=== PATIENT | female | born 1985 | race Caucasian/White ===

== ENCOUNTER 2023-04-29 07:29 | Outpatient (CLI) | payer BC, SELFPAY ==
--- NOTE | 2023-04-29 07:45 | CRLHL7_ITS ---
For Patients: As a result of the Century Cures Act, medical imaging exams and procedure reports are released immediately into your electronic medical record. You may view this report before your referring provider. If you have questions, please contact your health care provider. INDICATION: RLQ PAIN, IUD PLACEMENT COMPARISON: none TECHNIQUE: 2D lamar scale and color Doppler images were acquired of the pelvis using a transabdominal and transvaginal approach. Spectral Doppler evaluation of both ovaries also performed. FINDINGS: Sonographic images demonstrate a normal size and smooth outer contour of the uterus. Uterus measures 9.6 cm in length by 4.3 cm in AP diameter by 6.0 cm in transverse dimension. The myometrium has a normal uniform echotexture. The endometrial lining measures 4 mm in composite thickness. IUD is present in normal position within the endometrial canal. The right ovary measures 3.8 x 1.7 x 2.3 cm in size and the left ovary measures 3.3 x 1.4 x 2.4 cm. Collapsed right ovarian cyst is present measuring 1.7 x 1.1 x 1.8 cm. The ovaries demonstrate normal arterial and venous blood flow on color Doppler analysis. There are no suspicious fluid collections within the cul-de-sac. Normal spectral Doppler evaluation of both ovaries. IMPRESSION: Collapsed cyst within the right ovary measuring 1.8 cm. No excess pelvic free fluid. No ovarian torsion. Good position of the IUD within the endometrial canal. Dictated by Dannie Duarte MD @ 04/29/2023 8:24:23 AM (Electronically Signed)
== END 2023-04-29 07:30 | disposition home or self-care (01) ==
LOC: US 07:30
PROVIDERS: Visit Provider Registered Nurse
DX: R10.31 Right lower quadrant pain (principal); N83.201 Unspecified ovarian cyst, right side
CPT/HCPCS: 76830; 76856; 93976

== ENCOUNTER 2024-06-13 14:27 | Outpatient (CLI) | payer BC, SELFPAY ==
--- NOTE | 2024-06-13 14:40 | CRLHL7_ITS ---
For Patients: As a result of the Century Cures Act, medical imaging exams and procedure reports are released immediately into your electronic medical record. You may view this report before your referring provider. If you have questions, please contact your health care provider. BILATERAL SCREENING MAMMOGRAM WITH COMPUTER-AIDED DETECTION AND TOMOSYNTHESIS TECHNIQUE: CC and MLO views were obtained. These mammographic images have been obtained using full-field digital technique. These mammographic images were interpreted with the benefit of computer-aided detection. Breast Tomosynthesis was used in this interpretation. COMPARISON FILM: Baseline. FINDINGS: The breasts are heterogeneously dense, which may obscure small masses. IMPRESSION: There is no radiographic evidence for malignancy. ASSESSMENT: BI-RADS Category 1: Negative RECOMMENDATION: Routine screening mammogram in 1 year. A lay language report of this examination will be provided to the patient. Dannie Duarte M.D. Diagnostic Radiologist [email or web address] SP/Dictated by: Dannie Duarte MD @ 06/14/2024 9:59:00 AM (Electronically Signed)
== END 2024-06-13 14:28 | disposition home or self-care (01) ==
PROVIDERS: PCP Physician Assistant Medical; Visit Provider Physician Assistant Medical
DX: Z12.31 Encounter for screening mammogram for malignant neoplasm of breast (principal); R92.333 Mammographic heterogeneous density, bilateral breasts
CPT/HCPCS: 77063; 77067

== ENCOUNTER 2024-06-29 10:06 | Outpatient (CLI) | payer BC, SELFPAY ==
[2024-07-01 00:37] LABS: HPV Source Cervical/Vag; HPV, High Risk by TMA Not Detected
== END 2024-06-29 10:07 | disposition home or self-care (01) ==
PROVIDERS: PCP Physician Assistant Medical; Visit Provider Physician Assistant Medical
DX: Z00.00 Encounter for general adult medical examination without abnormal findings (principal); N87.1 Moderate cervical dysplasia; R53.83 Other fatigue; G89.29 Other chronic pain; Z13.6 Encounter for screening for cardiovascular disorders
CPT/HCPCS: 80053; 80061; 82728; 83540; 83550; 84443; 87624; 87625; 88141; 88142

== ENCOUNTER 2024-07-01 13:48 | Outpatient (RCR) | payer BC, SELFPAY | END 2024-10-29 23:59 | disposition home or self-care (01) | PROVIDERS: PCP Physician Assistant Medical; Visit Provider Orthopaedic Surgery Sports Medicine | DX: M25.552 Pain in left hip (principal); G89.29 Other chronic pain; R29.898 Other symptoms and signs involving the musculoskeletal system; R53.1 Weakness; Z51.89 Encounter for other specified aftercare | CPT/HCPCS: 97110; 97162 ==